=== PATIENT | male | born 1985 | race Caucasian/White ===

== ENCOUNTER 2021-01-27 10:52 | Day surgery (SDC) | payer MEDICAID ==
[2021-01-23 15:12] LABS: BASOPHILS % (AUTO) 0.7 % (0-1); EOSINOPHILS # (AUTO) 0.2 X10'3 (0-0.9); EOSINOPHILS % (AUTO) 3.5 % (0-6); LYMPHOCYTES % (AUTO) 18.7 % (21-51); MEAN CORPUSCULAR HEMOGLOBIN 31.1 PG (27.0-31.0); MEAN CORPUSCULAR HGB CONC 34.1 g/dL (33.0-36.5); MEAN CORPUSCULAR VOLUME 91.1 FL (78-98); MEAN PLATELET VOLUME 8.5 FL (7.4-10.4); MONOCYTES # (AUTO) 0.5 X10'3 (0-0.9); MONOCYTES % (AUTO) 8.5 % (2-12); NEUTROPHILS # (AUTO) 3.7 X10'3 (1.8-7.7); NEUTROPHILS % (AUTO) 68.6 % (42-75); PRE OP HEMATOCRIT 40.1 % (42.0-52.0); PRE OP HEMOGLOBIN 13.7 g/dL (14.0-17.9); PRE OP PLATELET COUNT 190 X10'3 (140-440); RED CELL DISTRIBUTION WIDTH 14.6 % (11.5-14.5)
[2021-01-23 15:24] LABS: ALBUMIN 3.8 G/DL (3.4-5.0); ANION GAP 10 (8-16); BLOOD UREA NITROGEN 20 MG/DL (7-18); BUN/CREATININE RATIO 17.5 (5.4-32.0); CALCIUM 8.6 MG/DL (8.5-10.1); CHLORIDE 104 MMOL/L (99-107); CREATININE 1.14 MG/DL (0.60-1.10); POTASSIUM 3.7 MMOL/L (3.5-5.1); SODIUM 139 MMOL/L (135-145); TOTAL CARBON DIOXIDE 25.1 MMOL/L (24-32); eGFR 74 ML/MIN
[2021-01-23 15:25] LABS: GLUCOSE 94 MG/DL (70-104)
[2021-01-27] VITALS (7 sets, daily range): BP systolic 155–167; BP diastolic 92–104
[~2021-01-27] VITALS: Ht 177.8 cm; Wt 102.2 kg
[~2021-01-27 10:52] MED LIST: CIPR-260 PO; ceFAZolin 2gm in dextrose, iso 50 ML IV ONE; famotidine 20mg tablet PO ONE; ringers solution, lacted 1,000 ML IV SCH
[2021-01-27] MEDS ORDERED: iohexol 300 MG/1 ML 50ml polymer ONE (13:53)
[2021-01-27] MEDS ORDERED: labetalol 20mg/4ml (5mg/ml) syringe IV PRN (14:05)
[2021-01-27] MEDS ORDERED: hydrALAZINE 20mg/ml inj. IV PRN (14:05)
[2021-01-27] MEDS ORDERED: acetaminophen 1,000mg/100ml IV 100 ML IV PRN (14:05)
[2021-01-27] MEDS ORDERED: ondansetron/PF 4mg/2ml inj IV PRN (14:05)
[2021-01-27] MEDS ORDERED: ringers solution, lacted 1,000 ML IV SCH (14:05)
[2021-01-27] MEDS ORDERED: morphine 4 MG/ML inj SYRINge IV PRN (14:05)
[2021-01-27] MEDS ORDERED: morphine 2 MG/ML inj. syringe IV PRN (14:05)
[2021-01-27] MEDS ORDERED: meperidine/PF 25mg/ml syringe IV PRN ×3 (14:05)
[2021-01-27] MEDS ORDERED: proCHLORperazine 10 MG/2 ml inj IV PRN (14:05)
[2021-01-27] MEDS ORDERED: dexamethasone sod phosphate 10mg/ml inj ONE (14:16)
[2021-01-27] MEDS ORDERED: sevoflurane 250ml liquid IH ONE (14:16)
[2021-01-27] MEDS ORDERED: fentaNYL/PF 50MCG/1 ML 2ML syringe ONE (14:18)
[2021-01-27] MEDS ORDERED: midazolam 1 mg/ML 2ml injection ONE (14:18)
[2021-01-27] MEDS ORDERED: ondansetron/PF 4mg/2ml inj ONE (14:32)
[2021-01-27] MEDS ORDERED: LIDOcaine 2% (20mg/ml) 5ml vial ONE (14:32)
[2021-01-27] MEDS ORDERED: propofol inj 20 ML IV ONE (14:32)
--- NOTE | 2021-01-27 14:51 | NUR ---
Received from OR via [facility] , accompanied by Anesthesiologist MYESHA and report given by Anesthesiolgist. PATIENT WITH 20G PIV IN RIGHT HAND RUNNING LR AT 100. DENIES PAIN. NO DRESSINGS. Addendum: 01/27/21 at 1517 by Rigoberto Harvey RN, RN Amended: Links added.
--- NOTE | 2021-01-27 15:51 | NUR ---
ALL DC CRITERIA HAS BEEN MET. VSS. DENIES PAIN OR DISCOMFORT. PATIENT DRESSED AND TAKEN OUT VIA WHEELCHAIR AND HIS SIG OTHER DROVE PATIENT HOME. IV TAKEN OUT WITHOUT COMPLICATIONS. Addendum: 01/27/21 at 1603 by Rigoberto Harvey RN, RN Amended: Links added.
== END 2021-01-27 15:51 | disposition home or self-care (01) ==
LOC: PAS 10:52
PROVIDERS: ATTEND Urology
DX: Z46.6 Encounter for fitting and adjustment of urinary device (principal); Z20.822 Contact with and (suspected) exposure to COVID-19; Z87.891 Personal history of nicotine dependence; Z98.890 Other specified postprocedural states; Z79.899 Other long term (current) drug therapy; G47.30 Sleep apnea, unspecified
CPT/HCPCS: 36415; 52310; 80048; 82948; 85025; 87635; 93005; J1100; J2001; J2250; J2405; J2704; J3010; Q9967; 76000; A4618; J7120